=== PATIENT | male | born 1975 | race Caucasian/White ===

== ENCOUNTER 2016-03-03 10:20 | Emergency (ER) | payer SELFPAY ==
[2016-03-03 10:45] VITALS: TEMP 97.9; BMI 20.2
[2016-03-03 11:05] VITALS: BP 127/82; PULSE 86
--- NOTE | 2016-03-03 11:09 | EDPRACDOC ---
- General Information Chief Complaint: Toothache Stated Complaint: TOOTHACHE Time Seen by Provider: 03/03/16 11:03 Information Source: Patient Home Medications: Home Medications Amoxicillin Trihydrate [Amoxicillin] 500 mg PO TID #30 tab 10/30/15 Ketorolac Tromethamine [Toradol] 10 mg PO Q6H PRN #12 tab 10/30/15 Amoxicillin Trihydrate [Amoxicillin] 500 mg PO TID #21 tab 03/03/16 Ketoprofen 50 mg PO BID PRN #20 capsule 03/03/16 Allergies/Adverse Reactions: Allergies Allergy/AdvReac Type Severity Reaction Status Date / Time No Known Allergies Allergy Verified 10/30/15 13:45 - History of Present Illness Onset: 3 days HPI: PT STATES LEFT UPPER TOOTH BROKE OFF ON THURSDAY, COMPLAINS OF INCREASED PAIN SINCE, HAS HAD CHILLS AND N/V THAT HE ATTRIBUTES TO ASPIRIN. Pain Severity: Reports: Severe Relevant History of: Reports: None Modifying Factors: improves with: Heat, Cold, Chewing. worse with: Anagelsics Associated Signs and Symptoms: Reports: Chills. Denies: Fever, Earache, Sore Throat - Treatment Prior to ED Arrival Reported Medications/Treatment [employer] Aspirin (Dose/Time) Aspirin 81mg x6 this am 0600 ED Past Medical History - History Reviewed Yes Nurses notes reviewed and agree except as marked - Patient Medical History GI/ History: Reports: PMH GI Yes/No Other (HEP C) Psychological History: Reports: Depression - Social Medical History Smoking Status: Heavy tobacco smoker (5 or more cigarettes/day or daily pipe/ cigar) EDM Review of Systems - Review of Systems Constitutional: Chills. negative: Fever Eyes: negative: Double Vision Ears: negative: Drainage Throat: negative: Pain Nose: negative: Congestion, Discharge Mouth: Tooth Pain Respiratory: negative: Cough, Shortness of Breath, Wheezing Gastrointestinal: Nausea, Vomiting. negative: Diarrhea, Pain Neurological: negative: Headache - Physical Exam Constitutional: Alert (Awake), No apparent distress Oriented to: Time, Person, Place Last recorded Vital Signs: Last Vital Signs Temp 97.9 F 03/03/16 10:41 Pulse 86 03/03/16 11:03 Resp 18 03/03/16 11:03 BP 127/82 03/03/16 11:03 Pulse Ox 97 03/03/16 11:03 Oxygen Pulse Oxygen Saturation 97 O2 Device Room Air Oxygen Flow Rate Fraction of Inspired Oxygen ( FIO2) - HEENT Head: Normal ( normocephalic) Eye Exam: Normal (PERRL, EOMI, Sclera white) Oropharynx: Normal (Pharynx:Moist without exudate,Gums-no swelling) Tympanic Membrane: Normal ENT EAC: Normal TMJ: Normal Nose: No Symptoms Reported (septum midline) Neck: Normal (FROM, trachea at midline) - Respiratory/Cardiovascular Respiratory: Normal - CTA (BBS clear to auscultation without adventitious sounds ) Cardiovascular: Normal (RRR without murmur, gallop or rub) - Integumentary Skin: Normal, Warm, Dry Lymphatics: Normal (no adenopathy) - Neurologic Memory Impaired: Normal Motor Function: Normal (Normal tone, Pulses 2+ No cyanosis or edema, FROM) Cranial Nerve: Normal (CN II-X11 intact sensation, strength 5/5) Cerebellar: Normal Mood Description: Normal Perception: Normal ED Tooth Problem Exam - HEENT Face: Normal Teeth: Left: Molar-2 Upper (TENDER, CARIOUS, BROKEN) Gingiva: Normal Palate: Normal Mouth Range of Motion: Normal Sinuses: Normal Oropharynx: Normal Neck: Normal - Differential Diagnosis Periapical Abscess, Periodontal Abscess Decision Time to Discharge: 11:08 - Departure Disposition: Home Condition: Stable Final Diagnosis: Dental abscess (peridontal) Instructions: Dental Abscess (ED) Education/Counseling Given To: Patient Education/Counseling Given Regarding: Diagnosis, Treatment, Prognosis, Follow Up Referrals: Saeid Summers MD [Staff Physician] - One Week Prescriptions: Amoxicillin Trihydrate [Amoxicillin] 500 mg PO TID #21 tab Ketoprofen 50 mg PO BID PRN #20 capsule PRN Reason: Pain Additional Instructions: Tooth Problem: You must follow up with a dentist as soon as possible, you may contact the [facility] at [phone] for assistance.
== END 2016-03-03 11:16 | disposition home or self-care (01) ==
LOC: EDMC 10:20
DX: K04.7 Periapical abscess without sinus (principal); F17.200 Nicotine dependence, unspecified, uncomplicated
CPT/HCPCS: 99283